=== PATIENT | female | born 1990 | race Two or more races ===

== ENCOUNTER 2021-10-25 04:29 | Emergency (ER) | payer OTHER, SELFPAY ==
[2021-10-25] MEDS ORDERED: Ondansetron PF 4 MG/2 ML Vial ONE ×2 (05:16→10:49)
[2021-10-25] MEDS ORDERED: Ketorolac Tromethamine 30 MG/ML VIAL ONE (05:16)
[2021-10-25 05:17] LABS: Bilirubin Neg (Negative); Blood, Urine 150 (Negative); Clarity Slightly Cloudy (Clear); Glucose, Urine (Dipstick) Normal (Negative); Ketone, Urine 15 mg/dL (Negative); Leukocyte 100 (Negative); Nitrite Negative (Negative); Pregnancy Test - Urine (BHCG) Negative (Negative); Protein, Urine (Dipstick) Negative (Neg-Trace); Specific Gravity, Urine 1.025 (1.002-1.036); Urobilinogen Normal mg/dL (Less than 2)
[2021-10-25 05:18] LABS: Pregu Control Background? CLEAR/WHITE (CLR/WHITE); Pregu Control Bar Appear? YES (CONTROL BAR); Specific Gravity 1.025 (1.002-1.036)
[2021-10-25 05:25] LABS: Bacteria/HPF 2+ HPF (None Seen); Mucous/LPF 2+ LPF (<2+)
[2021-10-25 05:26] LABS: ALT (SGPT) 14 U/L (8-55); AST (SGOT) 17 U/L (5-34); Albumin 4.2 g/dL (3.5-5.0); Alkaline Phosphatase 58 U/L (40-110); Anion Gap 12 mmol/L (10-20); BUN (Urea Nitrogen) 14 mg/dL (7.0-18.7); Bilirubin, Total 0.5 mg/dL (0.2-1.2); Calc. Creatinine Clearance 0 mL/min (70-130); Calcium 9.5 mg/dL (7.8-10.44); Carbon Dioxide 24 mmol/L (22-29); Chloride 105 mmol/L (98-107); Estimated GFR 93; Globulin 3.2 g/dL (2.4-3.5); Glucose 124 mg/dL (70-105); Lipase 26 U/L (8-78); Magnesium 1.7 mg/dL (1.6-2.6); Potassium 3.8 mmol/L (3.5-5.1); Protein, Total 7.4 g/dL (6.0-8.3); Sodium 137 mmol/L (136-145)
[2021-10-25 05:44] LABS: #Monocytes 0.5 10x3/uL (0.0-1.1); #Neutrophils 15.4 10x3/uL (1.5-8.4); %Basophils 0.2 % (0.0-2.0); %Eosinophils 0.1 % (0.0-6.0); %Lymphocytes 7.8 % (18.0-47.0); %Neutrophils 88.4 % (40.0-75.0); Hemoglobin 13.1 g/dL (12.0-15.5); Mean Corpuscular HGB CONC 34.5 g/dL (32.0-36.0); Mean Corpuscular Hemoglobin 30.7 pg (27.0-33.0); Mean Platelet Volume 10.8 fl (7.4-10.4); Platelet Count 248 10x3/uL (150-450); RBC Distribution Width 11.4 % (11.5-14.5); Red Blood Cell (RBC) Count 4.27 10x6/uL (3.90-5.03); White Blood Cell (WBC) Count 17.4 10x3/uL (3.5-10.5)
[2021-10-25] MEDS ORDERED: Morphine 4 MG/ML VIAL ONE (05:53)
[2021-10-25] MEDS ORDERED: Cefepime 2 GM VIAL ONE (08:54)
[2021-10-25] MEDS ORDERED: EPINEPHrine 1 MG/ML AMP ONE (09:04)
[2021-10-25] MEDS ORDERED: Bupivacaine PF 0.5% 30 ML VIAL ONE (09:04)
[2021-10-25] MEDS ORDERED: Lidocaine 1% PF 5 ML VIAL ONE (10:49)
[2021-10-25] MEDS ORDERED: Midazolam HCl 2 mg/2 ml Vial ONE (10:49)
[2021-10-25] MEDS ORDERED: PROPOFOL 20 ML ONE (10:49)
[2021-10-25] MEDS ORDERED: Fentanyl 100 MCG/2 ML VIAL ONE ×2 (10:49→11:43)
[2021-10-25] MEDS ORDERED: Dexamethasone 4 mg/ml Vial ONE (10:49)
[2021-10-25] MEDS ORDERED: Rocuronium Bromide 10 MG/ML (10ML VIAL) ONE (10:49)
[2021-10-25] MEDS ORDERED: Succinylcholine 200 MG/10 ml SYRINGE FS ONE (10:52)
[2021-10-25] MEDS ORDERED: PHENYLEPHRINE-NS 100 MCG/ML 10 ML SYRINGE ONE (11:05)
[2021-10-25] MEDS ORDERED: Glycopyrrolate 0.2 MG/ML 5 ML SYRINGE ONE (11:38)
[2021-10-25] MEDS ORDERED: SUGAMMADEX SODIUM 200 MG/2 ML VIAL ONE (11:51)
[2021-10-25] MEDS ORDERED: Meperidine HCl/PF 25 MG/ML VIAL ONE (12:11)
[2021-10-25] MEDS ORDERED: Iopamidol 300 61% 100 ML VIAL FS ONE (12:37)
[2021-10-25 15:21] LABS: SARS-CoV-2 NAA Rapid Test Not Detected (NotDetected)
== END 2021-10-25 10:25 | disposition admitted as inpatient to this hospital (09) ==
LOC: CSHERS 04:29
PROC: 0DTJ4ZZ Resection of Appendix, Percutaneous Endoscopic Approach (ICD-10-PCS; principal; 2021-10-25)
DX: K35.80 Unspecified acute appendicitis (principal); E28.2 Polycystic ovarian syndrome; Z20.822 Contact with and (suspected) exposure to COVID-19
CPT/HCPCS: 74177; 76705; 80053; 81003; 81015; 81025; 83690; 83735; 85025; 87086; 88304; 96361; 96374; 96375; J0171; J0692; J1100; J1885; J2175; J2250; J2270; J2405; J2704; J3010; Q9967; S0020; U0002

== ENCOUNTER 2022-04-13 10:48 | Outpatient (CLI) | payer OTHER | END 2022-04-13 10:49 | disposition home or self-care (01) | LOC: CSHULT 10:48 | PROVIDERS: ATTEND Nurse Practitioner Women's Health | DX: R10.2 Pelvic and perineal pain (principal) | CPT/HCPCS: 76856 ==